=== PATIENT | male | born 1960 | race Caucasian/White ===

== ENCOUNTER 2019-09-16 08:00 | Outpatient (CLI) | payer MEDICARE, OTHER, SELFPAY ==
--- NOTE | ~2019-09-16 | XR_ITS ---
XR lumbar spine min 4V 09/16/2019 08:36 Indication: Lumbar radiculopathy Procedure: 4 views lumbar spine Comparison: No prior studies for comparison. Findings: Status post fusion at L2-5. There is grade 1 spondylolisthesis at L4-5. There is disc narro wing at all lumbar levels most advanced at L2-3 and L3-4. There are laminectomy changes at multiple l evels. No acute fracture or traumatic malalignment. There are side plate and screws transfixing the l eft pelvis. Mild wedge-shaped deformities of T11, T12 and L1, likely chronic.. Impression: 1: Moderate lumbar spondylosis with loss of vertebral body height at multiple levels which is likely chronic. Status post fusion at L2-L5. 2: No acute abnormality of the lumbar spine. Reviewed, dictated and finalized at location A. Impression: 1: Moderate lumbar spondylosis with loss of vertebral body height at multiple l evels which is likely chronic. Status post fusion at L2-L5. 2: No acute abnormality of the lumbar spine.
== END 2019-09-16 08:01 | disposition home or self-care (01) ==
DX: M47.26 Other spondylosis with radiculopathy, lumbar region (principal); Z98.1 Arthrodesis status
CPT/HCPCS: 72110

== ENCOUNTER 2019-10-02 13:37 | Outpatient (CLI) | payer MEDICARE, OTHER, SELFPAY ==
--- NOTE | ~2019-10-02 | DEXA_ITS ---
Bone Density Report Name: Juan Daniel Wilson Age: 59 Sex: Male Ethnicity: White Date of : 1960 Indication: parental hip fracture; prior fracture; Referring Provider: PHYSICIAN NOT ON STAFF Study: Bone densitometry was performed. Exam Date: October 02, 2019 Accession number: [id number] Bone Density: Region BMD T-score Z-score Classification AP Spine (L1, L2) 0.844 -1.9 -1.3 Osteopenia Femoral Neck (Left) 0.776 -1.1 -0.2 Osteopenia Total Hip (Left) 0.929 -0.7 -0.2 Normal World Health Organization criteria for BMD impression classify patients as: Normal (T-score at or above -1.0), Osteopenia (T-score between -1.0 and -2.5), or Osteoporosis (T-score at or below -2.5). 10-year Fracture Risk: FRAX not reported because: Prior hip or vertebral fracture Clinical Information Provided by Patient: Have had a previous hip or vertebral fracture Has had a low trauma fracture Parent has had a hip fracture Has used the following medications: Vitamin D Patient maximum height was 70 No regular weight bearing exercise Drinks caffeinated beverages Impression: The patient has low bone mass, based on the Total Spine T-score. The patient has risk factors, including: parental hip fracture, previous fracture. Discussion: INCREASED RISK OF FRACTURE DUE TO HISTORY OF LOW TRAUMA FRACTURE. The patient's previous fracture puts the patient at high risk of a future fracture. In untreated patients, the risk of osteoporotic fracture increases approximately two-fold for each 1.0 SD decrease in T-score. Low bone density is not the only risk factor for fracture; also consider factors such as patient's age, frailty or poor health, risk of falling, risk of injury, previous osteoporotic fracture, family history of osteoporosis, cigarette smoking, low body weight, etc. Not everyone with a low trauma fracture has osteoporosis; osteomalacia and other metabolic bone disorders should also be considered. Patients who have osteoporosis should be evaluated for specific diseases and conditions (secondary causes) that may cause or contribute to bone loss and fracture risk. National Osteoporosis Foundation (NOF) recommends pharmacologic intervention for patients with a prior low trauma hip or vertebral fracture regardless of BMD T-score. The patient should follow a healthful lifestyle (good nutrition with adequate calcium and vitamin D, and appropriate weight-bearing exercise). Follow-Up: Consider a repeat BMD and Vertebral Fracture Assessment (VFA) exam in 2 years or sooner if medically necessary, to reassess this patient's status. Reported by: MU on 10/02/2019 2:07:00 PM. Reviewed, dictated and finalized at location [facility] SPARKS
== END 2019-10-02 13:38 | disposition home or self-care (01) ==
LOC: ANHIMG 13:46
DX: M85.852 Other specified disorders of bone density and structure, left thigh (principal); M89.9 Disorder of bone, unspecified; M85.88 Other specified disorders of bone density and structure, other site
CPT/HCPCS: 77080